=== PATIENT | male | born 1940 | race Caucasian/White ===

== ENCOUNTER 2019-02-07 10:34 | Day surgery (SDC) | payer MEDICARE ==
[~2019-02-07] VITALS: Ht 167.6 cm; Wt 48.5 kg
[~2019-02-07 10:34] MED LIST: ALBU3IS INH; CHOL10002; FINA5 PO; GABA600; PROBIOTIC1 EAC1; SUPERIOR DIGES1 EACH PO; Vitamin C100 M1; Zantac150 MG PO
--- NOTE | 2019-02-07 12:18 | NUR ---
02/07/19 1218 Aria Garrido RN MET WITH PT AND PT'S TO EXPLAIN THE PROCEDURE. RN ASSISTED PT TO THE RESTROOM. RN QUESTIONED PT REGARDING HIS PREVIOUS EGG ALLERGY. PT STATED THAT EGGS MADE HIM NAUSEATED A CHILD. PT STATED THAT HE IS NO LONGER ALLERGIC TO EGGS. PT STATED "I HAVE NEVER HAD A PROBLEM WITH ANESTHESIA, AND I CAN EAT THE WHITES AND YOLKS OF EGGS." RN WILL NOTIFY DR PUGA OF THIS INFORMATION. RN ALSO UPDATED PT OF THE DELAY IN THE ROOM. WARM BLANKETS PROVIDED, CALL LIGHT IN REACH.
== END 2019-02-07 13:40 | disposition home or self-care (01) ==
LOC: ORSCSDS 10:34
PROVIDERS: Internal Medicine Gastroenterology
PROC: 0DJD8ZZ Inspection of Lower Intestinal Tract, Via Natural or Artificial Opening Endoscopic (ICD-10-PCS; principal; 2019-02-07 11:45)
DX: Z12.11 Encounter for screening for malignant neoplasm of colon (principal); K57.30 Diverticulosis of large intestine without perforation or abscess without bleeding; K64.8 Other hemorrhoids; K64.4 Residual hemorrhoidal skin tags; J43.9 Emphysema, unspecified; Z79.899 Other long term (current) drug therapy
CPT/HCPCS: J2704; J7120

== ENCOUNTER 2021-10-05 10:47 | Day surgery (SDC) | payer MEDICARE ==
[~2021-10-05] VITALS: Ht 172.7 cm; Wt 51.8 kg
== END 2021-10-05 13:19 | disposition home or self-care (01) ==
LOC: ORSCSDS 10:47
PROVIDERS: Internal Medicine Gastroenterology
PROC: 0DJ08ZZ Inspection of Upper Intestinal Tract, Via Natural or Artificial Opening Endoscopic (ICD-10-PCS; 2021-10-05)
PROC: 0D757ZZ Dilation of Esophagus, Via Natural or Artificial Opening (ICD-10-PCS; principal; 2021-10-05 12:15)
DX: R13.10 Dysphagia, unspecified (principal); G47.9 Sleep disorder, unspecified; J44.9 Chronic obstructive pulmonary disease, unspecified; K21.9 Gastro-esophageal reflux disease without esophagitis; Z79.899 Other long term (current) drug therapy
CPT/HCPCS: J2704; J7120